=== PATIENT | female | born 1975 | race African-American/Black ===

== ENCOUNTER 2018-01-15 09:58 | Observation (INO) ==
[2018-01-15] MEDS ORDERED: LIDOCAINE 2% 20 ML VIAL ONE (11:18)
[2018-01-15] MEDS ORDERED: MEPERIDINE 25 MG/1 ML VIAL IV STA (11:33)
[2018-01-15] MEDS ORDERED: ceFAZolin 1,000 MG in SYRINGE 1 EACH IV ONE (11:34)
[2018-01-15] MEDS ORDERED: PROMETHAZINE 25 MG/1 ML VIAL IM STA (11:34)
[2018-01-15] MEDS ORDERED: PROMETHAZINE 25 MG/1 ML VIAL ONE (11:55)
[2018-01-15] MEDS ORDERED: MEPERIDINE 25 MG/1 ML VIAL ONE (11:55)
[2018-01-15 12:00] LABS: Basophils # 0.1 10*3/uL (0.0-0.2); Basophils % 0.7 % (0.0-0.8); Eosinophils % 0.3 % (0.00-10.9); Hemoglobin 11.3 GM/DL (12.0-16.0); Immature Granulocytes % 0.4 %; Immature Granulocytes Absolute 0.04 #; Lymphocytes # 1.3 10*3/uL (1.4-4.0); Lymphocytes % 13.9 % (21.3-54.2); Mean Corpuscular HGB Conc 32.3 GM/DL (32-36); Mean Corpuscular Hemoglobin 27 PG (27-34); Mean Corpuscular Volume 82.9 FL (87-102); Monocytes # 0.5 10*3/uL (0.11-0.8); Monocytes % 5.1 % (1.7-12.7); Neutrophils # 7.6 10*3/uL (1.4-7.4); Neutrophils % 79.6 % (38.7-73.9); Platelet Count 312 T/CUMM (130-400); Red Blood Count 4.22 MC/CUMM (3.8-5.5); Red Cell Distribution Width 14.6 % (9.3-17.3); White Blood Count 9.6 T/CUMM (4-12)
[2018-01-15] MEDS: LACTATED RINGERS 1,000 ML IV SCH ×4 (12:06→22:24)
[2018-01-15] MEDS ORDERED: ceFAZolin 1,000 MG VIAL ONE (12:15)
[2018-01-15] MEDS ORDERED: BISACODYL 10 MG SUPP RECTAL PRN (12:56)
[2018-01-15] MEDS ORDERED: IBUPROFEN 800 MG TABLET PO PRN (12:56)
[2018-01-15] MEDS ORDERED: DOCUSATE SODIUM 100 MG CAPSULE PO PRN (12:56)
[2018-01-15] MEDS ORDERED: MAGNESIUM HYDROXIDE SUSP 30 ML UDCUP PO PRN (12:56)
[2018-01-15] MEDS ORDERED: ACETAMINOPHEN 325 MG TABLET PO PRN (12:56)
[2018-01-15] MEDS ORDERED: oxyCODONE/ACETAMINOPHEN 5-325 MG TABLET PO PRN (12:56)
[2018-01-15] MEDS ORDERED: ONDANSETRON 4 MG/2 ML VIAL IV PRN (12:56)
[2018-01-15] MEDS ORDERED: BENZOCAINE/MENTHOL LOZENGE 18/BOX PO PRN (12:56)
[2018-01-15] MEDS ORDERED: PROPOFOL 200 MG/20 ML VIAL IV ONE (13:20)
[2018-01-15] MEDS ORDERED: SEVOFLURANE 1 UNIT/15 MINUTE INH ONE (13:21)
[2018-01-15] MEDS ORDERED: DEXAMETHASONE 10 MG/1 ML VIAL ONE (13:21)
[2018-01-15] MEDS ORDERED: ONDANSETRON 4 MG/2 ML VIAL ONE (13:21)
[2018-01-15] MEDS ORDERED: fentaNYL 100 MCG/2 ML VIAL ONE (13:21)
[2018-01-15] MEDS: ceFAZolin 1,000 MG in SYRINGE 1 EACH IV SCH (18:24)
[2018-01-16] MEDS: ceFAZolin 1,000 MG in SYRINGE 1 EACH IV SCH (03:38)
[2018-01-16] MEDS: LACTATED RINGERS 1,000 ML IV SCH (04:45)
[2018-01-16 11:52] VITALS: BP 129/71
== END 2018-01-16 11:50 | disposition home or self-care (01) ==
LOC: N.ED 09:58 → N.EDINP 09:58 → N.5E 14:12
PROVIDERS: ADMIT Obstetrics & Gynecology; ATTEND Obstetrics & Gynecology